=== PATIENT | female | born 1985 | race Caucasian/White ===

== ENCOUNTER 2023-09-06 07:36 | Emergency (ER) | payer MEDICAID, SELFPAY ==
[2023-09-06 07:36] VITALS: BP 155/89; PULSE 94; RESP 14; TEMP 36.9; O2SAT 99; BMI 44.5
--- NOTE | 2023-09-06 08:09 | ED.VIS.DENTA ---
HPI History of Present Illness Chief Complaint: Dental Informant: patient Narrative Narrative: On and off left upper dental gum pain for the past 5 months. Worsened recently. Hot sensitivities. Receding gum on that left upper tooth. No current dentist. States was told she needs antibiotic before they would see her. No fevers. Tylenol taken last night. Prior similar symptoms: Yes PFSH PFSH Medical History Concussion Home Medications etodolac 200 mg capsule 200 mg PO 4X/DAYCM PRN Pain ##20 07/20/13 [Rx Last Taken Unknown] penicillin V potassium 250 mg tablet 500 mg (2 x 250 mg) PO 4X/DAY #40 tabs 07/20/13 [Rx Last Taken Unknown] erythromycin 500 mg particles in tablet (PCE) 500 mg PO TID 10 days 08/04/13 [Rx Last Taken Unknown] hydrocodone-acetaminophen 5-325mg 5mg-325mg 1 - 2 tab PO Q4H PRN PRN Pain ##20 08/04/13 [Rx Last Taken Unknown] naproxen 500 mg tablet 500 mg PO BID PRN #20 tabs 08/04/13 [Rx Last Taken Unknown] acetaminophen 500 mg tablet (Tylenol Extra Strength) 1,000 mg (2 x 500 mg) PO Q6H PRN fever or pain #60 tabs 09/06/23 [Rx Last Taken Unknown] ondansetron 4 mg disintegrating tablet 4 mg PO Q8H PRN PRN Nausea #10 tabs 09/06/23 [Rx Last Taken Unknown] penicillin V potassium 500 mg tablet 500 mg PO 4X/DAY #40 tabs 09/06/23 [Rx Last Taken Unknown] Allergy/AdvReac Type Severity Reaction Status Date / Time No Known Allergies Allergy Verified 09/06/23 07:38 Social History Smoking Status: Never smoker ROS ROS ED Constitutional Constitutional ED: Denies chills, fever(s) or sweats Eyes Eyes: Denies change in vision ENT ENT ED: Reports other Details: Dental/gum pain. ; Denies dysphagia or sore throat Cardiovascular Cardiovascular: Denies chest pain, leg edema, palpitations or racing heartbeat Respiratory/Chest Respiratory/Chest: Denies cough, dyspnea or dyspnea on exertion Gastrointestinal Gastrointestinal: Denies abdominal pain, diarrhea, nausea or vomiting Genitourinary Genitourinary ED: Denies dysuria, hematuria or urinary frequency Musculoskeletal Musculoskeletal: Denies back pain, extremity pain or neck pain Integumentary Denies rash or wounds Neurologic Neurologic: Denies headache(s), paresthesias or weakness EXAM Physical Exam Const Vital Signs: 09/06/23 07:36 Temperature 98.4 F Temperature Source Temporal Pulse Rate 94 Respiratory Rate 14 Blood Pressure 155/89 H Blood Pressure Mean 111 Pulse Ox 99 Oxygen Delivery Method Room Air Positive well nourished and well developed General Appearance ED: well developed and NAD HEENT Reports moist mucous membranes HEENT Narrative: Tender percussion tooth #16, no cavity no abscess there is receding gum line. There is no active bleeding. No ulcers. No fluctuance. normocephalic and atraumatic Eyes PERRL, EOMs intact bilaterally and conjunctivae normal General Eye ED: Yes normal appearance of both eyes Neck no lymphadenopathy and supple General: Negative for tenderness Chest Wall Chest: Negative for tenderness Resp normal respiratory effort and normal air movement Effort and Inspection: symmetric chest movement; Negative for respiratory distress Cardio regular rate, regular rhythm and no murmurs Peripheral Pulses: pulses 2+ throughout GI normal to inspection, nondistended, normoactive bowel sounds and non-tender Palpation: Negative for guarding or rebound tenderness present Back/Spine no CVA tenderness and no thoracic nor lumbar tenderness Extremity normal to inspection General Extremety ED: Negative for edema or tenderness General Extremity: Negative for edema Neuro oriented x3 and no sensory deficits noted Sensorium / Orientation: awake and alert Skin no rashes or lesions noted and no wounds MDM MDM MDM Narrative Medical decision making narrative: Interventions / MDM: Differential diagnosis: Dentalgia, gingivitis Diagnosis considered but do not suspect: No signs of focal abscess My EKG interpretation: N/A Imaging independently reviewed and interpreted by myself: N/A External documents reviewed: N/A Test considered but not ordered:N/A ED course: Vital stable nontoxic no clinical abscess. With pain and sensitivity started on penicillin. She request prescription for Zofran and Tylenol which was written. Dental list given for follow-up and definitive treatment plans. All questions were answered. Re-evaluation: stable Disposition discussed with patient/family/significant other: Patient Case discussed with consulting clinician: N/A This note was generated with [employer] dictation software. It may contain incorrect words, spelling, and punctuation that were not noted in checking the note before signing. Discharge Plan Triage Chief Complaint: Dental ED Provider: Yfn Clolins Dx/Rx/DC Orders Clinical Impression: Gingivitis, Dentalgia Instructions: Periodontal Disease Nonsurg Tx, ED Dental Pain Prescriptions: New penicillin V potassium 500 mg tablet 500 mg PO 4X/DAY Qty: 40 0RF ondansetron [ondansetron] 4 mg tablet,disintegrating 4 mg PO Q8H PRN PRN (Reason: Nausea) Qty: 10 0RF acetaminophen [Tylenol Extra Strength] 500 mg tablet 1,000 mg PO Q6H PRN (Reason: fever or pain) Qty: 60 0RF No Action penicillin V potassium 250 MG tablet 500 mg PO 4X/DAY Qty: 40 0RF etodolac 200 MG capsule 200 mg PO 4X/DAYCM PRN (Reason: Pain) Qty: 20 0RF hydrocodone-acetaminophen 1 TABLET tablet 1 - 2 tab PO Q4H PRN PRN (Reason: Pain) Qty: 20 0RF naproxen 500 MG tablet 500 mg PO BID PRN Qty: 20 0RF erythromycin [PCE] 500 MG tablet, particles/crystals 500 mg PO TID 10 Days 0RF Primary Care Provider: RC DE GUZMAN Activity Restrictions/Additional Instructions: Take antibiotic and medicines as prescribed. Follow-up with dental clinic through list that is given. Disposition Disposition: Home, Self Care Discharge Date/Time: 09/06/23 08:28
[2023-09-06] MEDS: Penicillin Vk 250 MG Tablet 500 MG PO (08:11)
[2023-09-06] MEDS: Acetaminophen 500 MG Tablet 1000 MG PO (08:11)
[2023-09-06] MEDS: Ondansetron ODT 4 MG Tablet PO (08:19)
== END 2023-09-06 08:28 | disposition home or self-care (01) ==
PROVIDERS: Emergency Provider Emergency Medicine; Visit Provider Emergency Medicine
DX: K05.10 Chronic gingivitis, plaque induced (principal)
CPT/HCPCS: 99282